=== PATIENT | female | born 1960 | race Caucasian/White ===

== ENCOUNTER 2018-10-21 10:32 | Day surgery (SDC) | payer OTHER ==
[~2018-10-21] VITALS: Ht 154.9 cm; Wt 77.1 kg
[2018-10-21] MEDS ORDERED: MIDAZOLAM 2 MG/2 ML VIAL ONE (13:22)
[2018-10-21] MEDS ORDERED: fentaNYL 0.05 MG/ML VIAL ONE (13:22)
[2018-10-21] MEDS ORDERED: LIDOCAINE 2% 100 MG/5 ML UJET TP ONE (13:22)
[2018-10-21] MEDS ORDERED: fentaNYL 0.05 MG/ML VIAL IVP ONE (14:00)
== END 2018-10-21 14:35 | disposition home or self-care (01) ==
LOC: MMU 10:32 → MDS 10:32
PROVIDERS: ATTEND Internal Medicine Gastroenterology
DX: Z12.11 Encounter for screening for malignant neoplasm of colon (principal); I10 Essential (primary) hypertension; E66.3 Overweight; Z68.32 Body mass index [BMI] 32.0-32.9, adult; Z98.890 Other specified postprocedural states; Z79.899 Other long term (current) drug therapy; Z90.49 Acquired absence of other specified parts of digestive tract
CPT/HCPCS: 45378; J3010; J2250